=== PATIENT | female | born 1975 | race Caucasian/White ===

== ENCOUNTER 2024-02-12 13:39 | Outpatient (CLI) | payer OTHER, SELFPAY | END 2024-02-12 13:40 | disposition home or self-care (01) | LOC: NFLDREF 13:39 | PROVIDERS: Visit Provider Obstetrics & Gynecology | DX: R23.2 Flushing (principal); N95.1 Menopausal and female climacteric states | CPT/HCPCS: 84443 ==

== ENCOUNTER 2024-08-21 14:07 | Outpatient (CLI) | payer OTHER, SELFPAY ==
[2024-08-21 20:05] LABS: Bacterial Vaginosis* Negative (Negative); Candida glab/krus NOT DETECTED (No Detected); Candida species DETECTED (No Detected); Trichomonas vaginalis NOT DETECTED (No Detected)
[2024-08-24 09:09] LABS: HSV 1 Subtype by PCR Detected; HSV 2 Subtype by PCR Not Detected; Herpes Simplex Subtype Source Vesicle
== END 2024-08-21 14:08 | disposition home or self-care (01) ==
PROVIDERS: Visit Provider Obstetrics & Gynecology
DX: N89.8 Other specified noninflammatory disorders of vagina (principal)
CPT/HCPCS: 81513; 86694; 87481; 87529; 87661